=== PATIENT | male | born 1955 | race Caucasian/White ===

== ENCOUNTER 2020-06-05 10:41 | Observation (INO) ==
[2020-06-05] MEDS ORDERED: Aspirin 81 MG TAB.CHEW PO ONE (10:44)
[2020-06-05 11:07] LABS: Basophils % 0.5 %; Eosinophils # 0.1 K/mcL (0.0-0.6); Eosinophils % 1.8 %; Hematocrit 33.9 % (37.5-50.1); Hemoglobin 10.1 g/dL (12.9-16.9); Immature Granulocytes % 0.1 % (0-4); Lymphocytes # 1.6 K/mcL (0.6-4.6); Lymphocytes % 20.4 %; Mean Corpuscular HGB Conc 29.8 g/dL (31.6-35.5); Mean Corpuscular Hemoglobin 22.6 pg (28.0-33.3); Mean Platelet Volume 8.5 fL (9.4-12.4); Monocytes # 0.5 K/mcL (0.0-1.3); Monocytes % 6.4 %; Neutrophils # 5.5 K/mcL (1.6-8.9); Platelet Count 432 K/mcL (140-400); Red Blood Count 4.46 M/mcL (4.19-5.50); Red Cell Distribution Width 17.3 % (11.5-14.5); Segmented Neutrophils % 70.8 %; White Blood Count 7.8 K/mcL (4.3-11.1)
[2020-06-05 11:22] LABS: INR 1.1; Prothrombin Time 12.9 Seconds (9.4-12.1)
[2020-06-05 11:25] LABS: Activated Partial Thrombo Time 34.4 Seconds (26.0-36.0)
[2020-06-05 11:30] LABS: Alanine Aminotransferase 7 Units/L (7-52); Albumin 4.4 g/dL (3.5-5.7); Albumin/Globulin Ratio 1.3 (1.1-2.2); Alkaline Phosphatase 73 Units/L (34-104); Aspartate Amino Transferase 11 Units/L (13-39); BUN/Creatinine Ratio 16 (6-26); Bilirubin,Direct 0.1 mg/dL (0.0-0.2); Bilirubin,Indirect 0.2 mg/dL (0.0-1.0); Bilirubin,Total 0.3 mg/dL (0.3-1.0); Blood Urea Nitrogen 26 mg/dL (8-23); Calcium 9.2 mg/dL (8.6-10.3); Carbon Dioxide 22 mEq/L (23-29); Chloride 106 mEq/L (98-107); Globulin 3.3 g/dL (2.4-3.5); Glucose 86 mg/dL (70-105); Lipase 56 Units/L (11-82); Osmolality,Calculated 292 (280-300); Potassium 4.5 mEq/L (3.5-5.1); Sodium 139 mEq/L (136-145); Total Protein 7.7 g/dL (6.4-8.9); Troponin I < 0.03 ng/mL (< 0.04); eGFR For African Americans 50 (> 60); eGFR For Non-African Americans 42 (> 60)
[2020-06-05] MEDS ORDERED: Isovue-370 500 ML BOTTLE IVP ONE (11:39)
[2020-06-05] MEDS ORDERED: 0.9 % Sodium Chloride 1,000 ML IV ONE (11:41)
[2020-06-05] MEDS ORDERED: Nitroglycerin 1 INCH/GM PACKET TP ONE (12:16)
[2020-06-05] MEDS ORDERED: GI Cocktail 40 ML EACH PO ONE (12:54)
[2020-06-05] MEDS ORDERED: Ondansetron 4 MG/2 ML VIAL IVP PRN (13:00)
[2020-06-05] MEDS ORDERED: Naloxone 0.4 MG/ML INJ IVP PRN (13:00)
[2020-06-05] MEDS ORDERED: *HR* Dextrose 50 % in Water (Vial) 50 ML VIAL IVP PRN (13:04)
[2020-06-05] MEDS ORDERED: Dextrose Gel 15 GM/37.5 ML TUBE PO PRN ×2 (13:04)
[2020-06-05] MEDS ORDERED: D5% in Water 1,000 ML IVC PRN (13:04)
[2020-06-05] MEDS ORDERED: Nitroglycerin 0.4 MG TAB.SUBL SL PRN (13:19)
[2020-06-05] MEDS: *HR* Heparin 5,000 UNIT/ML VIAL SQ SCH ×2 (16:10→22:13)
[2020-06-05] MEDS ORDERED: Insulin LISPRO 300 UNITS/3 ML VIAL SQ SCH ×2 (16:30→21:00)
[2020-06-06] MEDS: Insulin LISPRO 300 UNITS/3 ML VIAL SQ SCH ×3 (01:28→12:28)
[2020-06-06 02:42] LABS: Hematocrit 31.7 % (37.5-50.1); Hemoglobin 9.5 g/dL (12.9-16.9); Mean Corpuscular Hemoglobin 22.4 pg (28.0-33.3); Mean Corpuscular Volume 74.6 fL (83.0-100.0); Mean Platelet Volume 8.8 fL (9.4-12.4); Platelet Count 422 K/mcL (140-400); Red Blood Count 4.25 M/mcL (4.19-5.50); Red Cell Distribution Width 17.2 % (11.5-14.5); White Blood Count 6.5 K/mcL (4.3-11.1)
[2020-06-06 03:01] LABS: Calcium 8.6 mg/dL (8.6-10.3); Chol/HDL Ratio 3.1 (0-4.9); Magnesium 2.1 mg/dL (1.6-2.6); Potassium 4.6 mEq/L (3.5-5.1)
[2020-06-06 03:04] LABS: % Iron Saturation 5 % (20-55); Iron 19 mcg/dL (65-175); Transferrin 288 mg/dL (203-362)
[2020-06-06 05:25] LABS: Estimated Average Glucose 177 mg/dl
[2020-06-06] MEDS: *HR* Heparin 5,000 UNIT/ML VIAL SQ SCH (05:55)
[2020-06-06] MEDS ORDERED: Regadenoson 0.4 MG/5 ML SYRINGE IVP ONE (06:19)
[2020-06-06] MEDS ORDERED: Aspirin Enteric Coated 81 MG Tablet PO SCH (09:00)
[2020-06-06 10:48] VITALS: BP 136/72
== END 2020-06-06 15:04 | disposition home or self-care (01) ==
LOC: 3BNU 10:41 → EMEROOARM 10:41 → 3BNU 13:38
PROVIDERS: ADMIT Internal Medicine; ATTEND Internal Medicine